=== PATIENT | female | born 1995 | race Asian ===

== ENCOUNTER 2018-07-02 23:22 | Emergency (ER) | payer OTHER ==
[2018-07-03] LABS: BILIRUBIN,URINE NEGATIVE (NEGATIVE); GLUCOSE, URINE (UA) NEGATIVE (NEGATIVE); KETONES,URINE (UA) NEGATIVE (NEGATIVE); LEUKOCYTE ESTERASE, URINE NEGATIVE (NEGATIVE); NITRITE,URINE NEGATIVE (NEGATIVE); OCCULT BLOOD,URINE NEGATIVE (NEGATIVE); PROTEIN,URINE NEGATIVE (NEGATIVE); UROBILINOGEN,URINE 0.2 (NORMAL) E.U./dL (NORMAL)
[2018-07-03 00:02] LABS: CLARITY,URINE CLEAR (CLEAR); HCG UR QUAL NEGATIVE
[2018-07-03] MEDS ORDERED: ONDANSETRON 4 MG/2 ML VIAL IVP STA (00:48)
[2018-07-03] MEDS ORDERED: SODIUM CHLORIDE 0.9% 1,000 ML IV ONE (00:48)
--- NOTE | 2018-07-03 00:50 | ED Physician Documentation ---
PD HPI ABD PAIN - Stated complaint Stated Complaint: N/D/FLANK PX - Chief complaint Chief Complaint: Abd Pain - History obtained from History obtained from: Patient, Family - History of Present Illness Timing - onset: Enter time (09), Today Timing - duration: Hours Timing - details: Gradual onset, Still present, Waxing and waning Quality: Sharp, Pain Location: RUQ Radiation: Right flank Improved by: Vomiting Worsened by: Moving, Breathing, Position, Palpation Associated symptoms: Fever, Nausea, Vomiting, Constipation Similar symptoms before: Diagnosis (had this flank pain with appendicitis and had ruptured appendix) Recently seen: Not recently seen - Additional information Additional information: Previously well 23-year-old female had some leftover chicken fettuccine that have been prepared the night before and refrigerated and she then went to go for a walk with her dog and she felt a bit nauseous and developed some pain in her flanks. She has more pain on the right side than the left but does have bilateral flank pain. She has had this pain all day long and she has had nausea and vomiting. She has not vomited any amount of food just a bit of liquid. Review of Systems Constitutional: denies: Fever Eyes: denies: Decreased vision Ears: denies: Ear pain Nose: denies: Rhinorrhea / runny nose, Congestion Throat: denies: Sore throat Cardiac: denies: Chest pain / pressure, Palpitations Respiratory: denies: Dyspnea, Cough GI: reports: Abdominal Pain, Nausea, Vomiting : denies: Dysuria, Frequency Skin: denies: Rash Musculoskeletal: reports: Back pain. denies: Neck pain, Extremity pain Neurologic: denies: Generalized weakness, Focal weakness, Numbness PD PAST MEDICAL HISTORY - Past Medical History Past Medical History: Yes Respiratory: Asthma - Past Surgical History Past Surgical History: Yes General: Appendectomy - Present Medications Home Medications: Ambulatory Orders Medication Instructions Recorded Confirmed Etonogestrel/Ethinyl Estradiol 07/02/18 [Nuvaring Vaginal Ring] Ondansetron Odt [Zofran] 4 mg TL Q6H PRN #10 tablet 07/03/18 traMADol [Ultram] 50 - 100 mg PO Q6H PRN #20 tablet 07/03/18 - Allergies Allergies/Adverse Reactions: Allergies Allergy/AdvReac Type Severity Reaction Status Date / Time acetaminophen [From Percocet] AdvReac Emesis Verified 07/02/18 23:29 oxycodone [From Percocet] AdvReac Emesis Verified 07/02/18 23:29 - Social History Does the pt smoke?: No Smoking Status: Never smoker Does the pt drink ETOH?: Yes Does the pt have substance abuse?: No - Immunizations Immunizations are current?: Yes - POLST Patient has POLST: No PD ED PE NORMAL - Vitals Vital signs reviewed: Yes (normal ) - General General: Alert and oriented X 3, No acute distress, Well developed/nourished - HEENT HEENT: Atraumatic, PERRL, EOMI - Neck Neck: Supple, no meningeal sign, No bony TTP - Cardiac Cardiac: RRR, No murmur - Respiratory Respiratory: No respiratory distress, Clear bilaterally - Abdomen Abdomen: Soft, Other (RUQ tenderness to bimanual palpation of the right kidney) - Back Back: No spinal TTP, Other (right CVA tenderness is much greater than left. ) - Derm Derm: Normal color, Warm and dry, No rash - Extremities Extremities: No deformity, No edema - Neuro Neuro: Alert and oriented X 3, product managent intern 2-12 intact, No motor deficit, No sensory deficit, Normal speech Eye Opening: Spontaneous Motor: Obeys Commands Verbal: Oriented GCS Score: 15 - Psych Psych: Normal mood, Normal affect Results - Vitals Vitals: Vital Signs - 24 hr 07/02/18 07/03/18 23:26 01:20 Temperature 36.8 C 37.4 C Heart Rate 86 65 Respiratory 18 18 Rate Blood Pressure 114/63 112/66 O2 Saturation 99 99 Oxygen O2 Source Room air - Labs Labs: Laboratory Tests 07/02/18 07/03/18 07/03/18 23:40 00:52 00:52 WBC 8.7 RBC 5.67 H Hgb 12.5 Hct 38.1 MCV 67.2 L MCH 22.0 L MCHC 32.8 RDW 14.2 Plt Count 148 MPV 8.7 Neut # (Auto) 7.7 H Lymph # (Auto) 0.7 L [place] # (Auto) 0.2 Eos # (Auto) 0.1 Baso # (Auto) 0.0 Absolute Nucleated RBC 0.01 Nucleated RBC % 0.1 Manual Slide Review Indicated Platelet Estimate NORMAL (130-450,000) RBC Morph Micro Appear 2+ MICROCYTOSIS Sodium 133 L Potassium 3.3 L Chloride 103 Carbon Dioxide 23 Anion Gap 7.0 BUN 14 Creatinine 0.7 Estimated GFR (MDRD) 105 Glucose 135 H Calcium 8.5 Total Bilirubin 0.8 AST 21 ALT 14 Alkaline Phosphatase 40 L Troponin I Total Protein 7.3 Albumin 4.0 Globulin 3.3 Albumin/Globulin Ratio 1.2 Lipase 29 Urine Color YELLOW Urine Clarity CLEAR Urine pH 6.0 Ur Specific [place] 1.025 Urine Protein NEGATIVE Urine Glucose (UA) NEGATIVE Urine Ketones NEGATIVE Urine Occult Blood NEGATIVE Urine Nitrite NEGATIVE Urine Bilirubin NEGATIVE Urine Urobilinogen 0.2 (NORMAL) Ur Leukocyte Esterase NEGATIVE Ur Microscopic Review NOT INDICATED Urine Culture Comments NOT INDICATED Urine HCG, Qual NEGATIVE 07/03/18 00:52 WBC RBC Hgb Hct MCV MCH MCHC RDW Plt Count MPV Neut # (Auto) Lymph # (Auto) [place] # (Auto) Eos # (Auto) Baso # (Auto) Absolute Nucleated RBC Nucleated RBC % Manual Slide Review Platelet Estimate RBC Morph Micro Appear Sodium Potassium Chloride Carbon Dioxide Anion Gap BUN Creatinine Estimated GFR (MDRD) Glucose Calcium Total Bilirubin AST ALT Alkaline Phosphatase Troponin I < 0.04 Total Protein Albumin Globulin Albumin/Globulin Ratio Lipase Urine Color Urine Clarity Urine pH Ur Specific [place] Urine Protein Urine Glucose (UA) Urine Ketones Urine Occult Blood Urine Nitrite Urine Bilirubin Urine Urobilinogen Ur Leukocyte Esterase Ur Microscopic Review Urine Culture Comments Urine HCG, Qual - Rads (name of study) CT abdomen/pel without Radiology: Prelim report reviewed (Impression: 1. No urinary tract stones or obstruction. 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 The gallbladder is imaged and it is sonographically nontender and nondistended. - IVC sono (time) 1245 Bedside IVC sono: IVC measures (cm) (1.18), IVC collapsed c insp (cm) (complete), Dehydration (est 1 liter deficit) PD MEDICAL DECISION MAKING - ED course Complexity details: reviewed results, re-evaluated patient, considered differential, d/w patient, d/w family ED course: 23 y/o female with acute flank pain and vomiting has no evidence of UTI on evaluation of the urine. She has sonographic tenderness to the kidney and nausea. 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 There are no other specific findings on diagnostic testing. I found it curious that she has not eaten since the AM and this evening her stomach is full on CT scan.. She is administered IV saline for mild dehydration and IV protonix. I have discussed the findings with the patient and her including the non-specificity of the findings on CT scan and her prior delayed presentation with the appendicitis. This illness does not appear to have declared itself and most likely is related to intolerance of the meal this morning. The expectation is for this to resolve spontaneously and I have asked the patient to abstain from eating, drink fluids and take pain medications and anti-emetic as needed. Departure - Departure Disposition: 01 Home, Self Care Clinical Impression: Abdominal pain of unknown etiology Condition: Stable Instructions: ED Abdominal Pain Unkn Cause Follow-Up: JASON Clarke [Provider Group] Prescriptions: Ondansetron Odt [Zofran] 4 mg TL Q6H PRN #10 tablet PRN Reason: Nausea / Vomiting traMADol [Ultram] 50 - 100 mg PO Q6H PRN #20 tablet PRN Reason: Pain Comments: We did not find a specific reason for your abdominal pain this evening. If this is due to the food you ate this morning we would expect this to resolve over the next 1-2 days and we will treat you symptomatically with pain medication and anti-nausea medication. If your pain persists, worsens or new symptoms develop return here for re-evaluation. The finding of mesenteric panniculitis is non- specific and is usually benign but it can indicate some developing condition. Follow up with your primary care doctor.
[2018-07-03] MEDS ORDERED: KETOROLAC 30 MG/ML VIAL IVP STA (00:54)
[2018-07-03 01:05] LABS: BASOPHILS % (AUTO) 0.1 %; EOSINOPHILS # (AUTO) 0.1 10^3/uL (0.0-0.7); EOSINOPHILS % (AUTO) 1.5 %; HGB - HEMOGLOBIN 12.5 g/dL (12.0-16.0); LYMPHOCYTES # (AUTO) 0.7 10^3/uL (1.5-3.5); LYMPHOCYTES % (AUTO) 8.5 %; MEAN CORPUSCULAR HGB CONC 32.8 g/dL (32.0-36.0); MEAN CORPUSCULAR VOLUME 67.2 fL (81.0-99.0); MEAN PLATELET VOLUME 8.7 fL (7.9-10.8); MONOCYTES # (AUTO) 0.2 10^3/uL (0.0-1.0); MONOCYTES % (AUTO) 2.2 %; NEUTROPHILS # (AUTO) 7.7 10^3/uL (1.5-6.6); NEUTROPHILS % (AUTO) 87.7 %; PLT - PLATELET COUNT 148 10^3/uL (130-450); RED BLOOD COUNT 5.67 10^6/uL (4.20-5.40); RED CELL DISTRIBUTION WIDTH 14.2 % (12.0-15.0); WHITE BLOOD COUNT 8.7 x10^3/uL (4.8-10.8)
[2018-07-03 01:13] LABS: ALBUMIN/GLOBULIN RATIO 1.2 (1.0-2.2); BILIRUBIN,TOTAL 0.8 mg/dL (0.2-1.0); CALCIUM 8.5 mg/dL (8.5-10.3); CREATININE 0.7 mg/dL (0.4-1.0); TOTAL PROTEIN 7.3 g/dL (6.7-8.2)
--- NOTE | 2018-07-03 01:16 | CT Report ---
Reason: R flank pain Procedure Date: 07/03/2018 Accession Number: [id number] / [id number] Procedure: CT - Abdomen/Pelvis W/O CPT Code: FULL RESULT: EXAM: CT ABDOMEN AND PELVIS (CT KUB) EXAM DATE: 07/03/2018 01:07 AM. CLINICAL HISTORY: Nausea, diarrhea, and flank pain since Wednesday. COMPARISONS: None. TECHNIQUE: Routine axial helical CT imaging was performed through the abdomen and pelvis without IV contrast. Reconstructions: Coronal and sagittal. In accordance with CT protocol optimization, one or more of the following dose reduction techniques were utilized for this exam: automated exposure control, adjustment of mA and/or KV based on patient size, or use of iterative reconstructive technique. FINDINGS: Lung Bases: Unremarkable. Right Kidney/Ureter: No stones, hydronephrosis, or hydroureter. No perinephric fat stranding. Left Kidney/Ureter: No stones, hydronephrosis, or hydroureter. No perinephric fat stranding. Other Solid Organs: Noncontrast images of the solid organs are grossly unremarkable. Gallbladder/Bile Ducts: Unremarkable. Peritoneal Cavity: No free fluid, free air or brian adenopathy. Bowel is grossly unremarkable. Previous appendectomy. 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 Pelvic Organs: No bladder stones or wall thickening. Grossly simple appearing 3.5 cm right ovarian cyst which does not require followup per ACR criteria. No suspicious masses seen. Vasculature: Unremarkable. Other: None. IMPRESSION: 1. No urinary tract stones or obstruction. 2. 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 RADIA
[2018-07-03 01:42] LABS: PLATELET ESTIMATE, MANUAL NORMAL (130-450,000) (NORMAL); RBC MORPHOLOGY (MULTIPLE) 2+ MICROCYTOSIS (NORMAL)
[2018-07-03] MEDS ORDERED: PANTOPRAZOLE 40 MG VIAL IVP STA (02:18)
[2018-07-03 02:29] VITALS: BP 100/54
== END 2018-07-03 02:49 | disposition home or self-care (01) ==
LOC: ED 23:22
DX: R10.31 Right lower quadrant pain (principal); E86.0 Dehydration; K65.4 Sclerosing mesenteritis
CPT/HCPCS: 36415; 74176; 80053; 81001; 81003; 81025; 83690; 84484; 85025; 87086; 96361; 96374; 96375; 99283; 99284

== ENCOUNTER 2020-04-01 07:37 | Day surgery (SDC) | payer OTHER ==
[2020-04-01 08:03] LABS: HCG UR QUAL NEGATIVE
[2020-04-01] MEDS ORDERED: LACTATED RINGERS 1,000 ML IV ONE ×2 (08:03→10:20)
--- NOTE | 2020-04-01 08:16 | ANESTHESIA ---
Pre-Anesthesia VS, & Labs - Diagnosis R ovarian cyst - Procedure R laparoscopic ovarian cystectomy Vital Signs: Temp Pulse Resp BP Pulse Ox 37.0 C 72 18 116/63 98 04/01/20 08:05 04/01/20 08:05 04/01/20 08:05 04/01/20 08:05 04/01/20 08:05 Height: 5 ft 0.24 in Weight (kg): 61.68 kg Body Mass Index: 26.3 BMI Classification: Overweight - NPO >8 hours - Is Patient ?: No - Lab Results Lab results reviewed: Yes Home Medications and Allergies Home Medications: Ambulatory Orders Amitriptyline [Elavil] 10 mg PO QPM 03/26/20 Cetirizine [ZyrTEC] 10 mg PO DAILY 03/26/20 Etonogestrel [Nexplanon] 68 mg SQ 03/26/20 Fluticasone [Flonase] 1 sprays JASON DAILY 03/26/20 Amitriptyline [Elavil] 10 mg PO QPM 03/26/20 Cetirizine [ZyrTEC] 10 mg PO DAILY 03/26/20 Etonogestrel [Nexplanon] 68 mg SQ 03/26/20 Fluticasone [Flonase] 1 sprays JASON DAILY 03/26/20 Allergies/Adverse Reactions: Allergies Allergy/AdvReac Type Severity Reaction Status Date / Time oxycodone [From Percocet] AdvReac Emesis Verified 04/01/20 08:05 Anes History & Medical History - Anesthetic History Anesthesia Complications: reports: No previous complications Family history of Anesthesia Complications: Denies Family history of Malignant Hyperthermia: Denies - Medical History Cardiovascular: reports: None Pulmonary: reports: None Gastrointestinal: reports: None Urinary: reports: None Musculoskeletal: reports: None Endocrine/Autoimmune: reports: None Skin: reports: None Smoking Status: Never smoker - Surgical History General: Appendectomy (open) Exam General: Alert, Oriented x3, Cooperative Dental: WNL Mouth Openin Fingerbreadth Neck Mobility: Normal Mallampati classification: II Thyromental Distance: 4-6 cm Respiratory: Lungs clear, Normal breath sounds, No respiratory distress Cardiovascular: Regular rate Neurological: Normal speech Mental/Cognitive Status: Alert/Oriented X3, Normal for patient Plan Anesthesia Type: General Consent for Procedure(s) Verified and Reviewed: Yes Code Status: Attempt Resuscitation ASA classification: 1-Healthy patient Is this case an emergency?: No
[2020-04-01] MEDS ORDERED: ACETAMINOPHEN 1,000 MG/100 ML 100 ML IV ONE ×2 (08:21→08:30)
[2020-04-01] MEDS ORDERED: MORPHINE 2 MG/ML CARPUJECT IVP PRN (08:27)
[2020-04-01] MEDS ORDERED: fentaNYL 100 MCG/2 ML VIAL IVP PRN (08:27)
[2020-04-01] MEDS ORDERED: ePHEDrine 50 MG/ML VIAL IVP PRN (08:27)
[2020-04-01] MEDS ORDERED: METOCLOPRAMIDE 10 MG/2 ML VIAL IVP PRN (08:27)
[2020-04-01] MEDS ORDERED: ONDANSETRON 4 MG/2 ML VIAL IVP PRN ×2 (08:27→10:26)
[2020-04-01] MEDS ORDERED: HYDROmorphone 0.5 MG/0.5 ML SYRINGE IVP PRN (08:27)
[2020-04-01] MEDS ORDERED: NALOXONE 0.4 MG/ML VIAL IVP PRN (08:27)
[2020-04-01] MEDS ORDERED: ATROPINE ABBOJECT 1 MG/10 ML SYRINGE IVP PRN (08:27)
[2020-04-01] MEDS ORDERED: PROPOFOL 200 MG/20 ML VIAL IVP ONE (08:30)
[2020-04-01] MEDS ORDERED: LIDOCAINE-MPF 2% 5 ML VIAL IM ONE (08:30)
[2020-04-01] MEDS ORDERED: ROCURONIUM 50 MG/5 ML VIAL IVP ONE (08:30)
[2020-04-01] MEDS ORDERED: fentaNYL 250 MCG/5 ML VIAL IVP ONE (08:30)
[2020-04-01] MEDS ORDERED: ONDANSETRON 4 MG/2 ML VIAL IVP ONE (08:30)
[2020-04-01] MEDS ORDERED: DEXAMETHASONE 4 MG/ML VIAL IVP ONE (08:30)
[2020-04-01] MEDS ORDERED: BUPIVACAINE 0.25% PF 30 ML VIAL ONE (08:36)
[2020-04-01] MEDS ORDERED: LACTATED RINGERS 1,000 ML IV SCH (09:00)
[2020-04-01] MEDS ORDERED: BUPIVACAINE 0.25% PF 30 ML VIAL SUBQ ONE ×2 (09:35)
[2020-04-01] MEDS ORDERED: SUGAMMADEX 200 MG/2 ML VIAL IVP ONE (10:22)
[2020-04-01] MEDS ORDERED: KETOROLAC 30 MG/ML VIAL IVP PRN (10:26)
[2020-04-01] MEDS ORDERED: diphenhydrAMINE 25 MG CAPSULE PO PRN (10:26)
[2020-04-01] MEDS ORDERED: MORPHINE 10 MG/ML VIAL IVP PRN (10:26)
--- NOTE | 2020-04-01 10:40 | OPERATIVE REPORT ---
Operative Report - General Procedure Date: 04/01/20 Planned Procedure: Diagnostic Laparoscopy, Right ovarian cystectomy Pre-Op Diagnosis: Chronic Pelvic Pain, Peristent Right Ovarian cyst Procedure Performed: Diagnostic Laparoscopy, Right ovarian cyst drainage, Right uterosacral ligament biopsy, Lysis of adhesions Post Op Diagnosis: Chronic Pelvic Pain, Right Ovarian cyst, Abdominopelvic Adhesions - Procedure Note Primary Surgeon: Anthony Secondary Surgeon: Opal Anesthesia Provider: Alcides Anesthesia Technique: General ET tube, Local Pathology: 1. Right ovarian cyst fluid 2. Right uterosacral biopsy IV Fluids (mL): 750 (Ringers Lactate) Estimated Blood Loss (mL): 5 Urine Output (mL): 100 Indications: 25yo female G0 using Nexplanon for contraception with chronic pelvic pain, right greater than left, and persistent 4.5cm right ovarian cyst, desiring surgical evaluation for cause of her chronic pain as well as possible removal of persistent right ovarian cyst. She was counseled and consented for the procedure. Findings: Exam under anesthesia: Anteverted uterus with normal size, shape, and contour. Right adnexal fullness. No left adnexal masses. Laparoscopy: Normal uterus and bilateral fallopian tubes. Enlarged right ovary, drained with spinal needle productive of 29ml of clear simple fluid, which was sent for cytology. Left ovary with two band-like adhesions to ovarian fossa limiting movement. Adhesion taken down with endoshears. Anterior uterus to anterior cul-de-sac with prominent hyperemic fine vessels extending to right round ligament. Posterior cul-de-sac with filmy wide adhesion to sigmoid. Right uterosacral ligament with area of thickened and scarred surface, biopsied and sent for pathology. Adjacent to this scarred surface on the right there are scattered hyperemic dots, possible early endometriosis. Filmy omental adhesions and thin adhesions of bowel mesentery to RLQ anterior abdominal wall at prior appendectomy scar. Omental adhesions to anterior abdominal wall taken down with endoshears. Complications: None - Other Other Information/Narrative: OPERATIVE PROCEDURE: The patient was taken to the operating room where general anesthesia was performed without any complications. The patient was prepared and draped in the usual sterile fashion in the dorsal lithotomy position with yellow fin stirrups. A Carrillo catheter was inserted in the bladder. A surgical time out was performed. A bivalve speculum was placed in the vagina and a Hulka uterine manipulator was inserted into the uterus as a means of uterine manipulation. The speculum was removed from the vagina. Attention was turned to the patient's abdomen where local anesthesia injection was used followed by a 5 mm skin incision was made using the patient's old incision scar at the inferior portion of the umbilicus. A Veress needle was inserted and initial gas pressure was noted to be 2mm Hg. The abdomen was insufflated with CO2 gas with maximum pressure set to 15mm Hg and the Veress needle was removed. A 5 mm trocar and sleeve were placed into the patient's abdomen under direct visualization without any complications. Survey of the patient's abdomen and pelvis was notable for the above findings. Two additional ports were inserted into the right lower quadrant under direct visualization, taking care to avoid adhesions to anterior abdominal wall, and left lower quadrant under direct visualization in similar fashion. The right ovary was brought close to the anterior abdominal wall and an 18-gauge spinal needle was inserted into the abdominal wall under direct visualization, and was used to aspirate 29ml of clear appearing fluid from the right ovarian cyst. The needle was removed from the abdomen and the ovary was noted to be hemostatic. The cyst fluid was sent for cytology. The left ovary adhesions to the ovarian fossa were taken down with endoshears. The right uterosacral ligament with area of thickened and scarred surface was biopsied and tissue sent for pathology. The biopsy site was hemostatic with pressure. The omental adhesions to anterior abdominal wall were taken down with endoshears. Final inspection of the abdomen and pelvis revealed excellent hemostasis. All instruments were removed from the abdomen. The abdomen was decompressed and all trocars were removed. The skin incisions were closed with subcuticular 4-0 Monocryl and covered with Dermabond. The Hulka uterine manipulator was removed from the vagina and the cervix was hemostatic with pressure. All instruments were removed from the vagina. The Carrillo catheter was removed. All sponge, sharp, and instrument counts were correct x2. The patient was extubated in the room and was taken to the PACU in stable condition.
[2020-04-01] MEDS ORDERED: KETOROLAC 30 MG/ML VIAL ONE (10:41)
[2020-04-01 11:28] VITALS: BP 126/72
--- NOTE | 2020-04-01 12:50 | ANESTHESIA POST OP EVALUATION ---
Anesthesia Post Eval - Post Anesthesia Eval Vitals: Last Vital Signs Temp 36.9 C 04/01/20 11:28 Pulse 65 04/01/20 11:28 Resp 18 04/01/20 11:28 BP 126/72 04/01/20 11:28 Pulse Ox 100 04/01/20 11:28 CV Function Including HR & BP: positive: Stable Pain Control: positive: Satisfactory Nausea & Vomiting: positive: Negative Mental Status: positive: Baseline Respiratory Status: Airway Patent Hydration Status: Satisfactory Anesthesia Complications: positive: None
== END 2020-04-01 07:38 | disposition home or self-care (01) ==
LOC: SDS 07:37
PROVIDERS: ATTEND Obstetrics & Gynecology
PROC: 0UB44ZX Excision of Uterine Supporting Structure, Percutaneous Endoscopic Approach, Diagnostic (ICD-10-PCS; 2020-04-01)
PROC: 0W9J4ZX Drainage of Pelvic Cavity, Percutaneous Endoscopic Approach, Diagnostic (ICD-10-PCS; principal; 2020-04-01 08:45)
DX: N83.201 Unspecified ovarian cyst, right side (principal); R10.2 Pelvic and perineal pain; N94.10 Unspecified dyspareunia
CPT/HCPCS: 81025